=== PATIENT | female | born 1990 | race American Indian/Alaskan Native ===

== ENCOUNTER 2016-10-08 00:06 | Inpatient (IN) | payer OTHER ==
[2016-10-08] MEDS ORDERED: D5NS 0.2% 1,000 ML IV SCH (01:00)
[2016-10-08 01:25] LABS: Basophils % (Auto) 0.7 % (0.0-1.8); Eosinophils % (Auto) 2.2 % (0.0-4.3); Hematocrit 27.5 % (30.3-42.9); Hemoglobin 8.8 gm/dl (10.1-14.3); Mean Corpuscular HGB Conc 32 % (30-34); Mean Corpuscular Volume 70 fl (79-97); Platelet Count 366 K/mm3 (140-440); Red Blood Count 3.93 M/mm3 (3.65-5.03); Red Cell Distribution Width 18.5 % (13.2-15.2); Reticulocyte % 6.71 % (0.78-2.58); White Blood Count 15.6 K/mm3 (4.5-11.0)
[2016-10-08 01:28] LABS: Mean Corpuscular Hemoglobin 22 pg (28-32)
[2016-10-08] MEDS ORDERED: ZOFRAN IV ONE (02:38)
[2016-10-08] MEDS ORDERED: BENADRYL IV ONE (02:38)
[2016-10-08] MEDS ORDERED: TORADOL IV ONE (02:38)
[2016-10-08] MEDS ORDERED: DILAUDID IV ONE ×3 (02:38→05:04)
--- NOTE | 2016-10-08 04:02 | Emergency Department Report ---
ED General Adult HPI - General Chief complaint: Sickle Cell Crisis Stated complaint: CHEST PAIN, SHORTNESS OF BREATH Time Seen by Provider: 10/08/16 02:33 Source: patient Mode of arrival: Ambulatory Limitations: No Limitations - History of Present Illness Initial comments: 26-year-old female with a past medical history of sickle cell SS presents to the hospital complains of pain secondary to sickle cell crisis. Symptoms started this a.m. She denies of bilateral arm pain, upper back pain, and whole chest pain. Pain is constant, rated 8/10 intensity and not improved with her at home narcotic medication. She complains that pain in the middle for chest and worse with deep inspiration. Shortness of breath also reported due to pain. No reports of calf tenderness or edema. Last travel was to [place] in July. No history of DVT/PE, control pill use. Patient denies infectious symptoms including cough fever. 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 Severity scale (0 -10): 7 - Related Data Allergies Allergy/AdvReac Type Severity Reaction Status Date / Time No Known Allergies Allergy Verified 10/08/16 00:21 ED Review of Systems ROS: Stated complaint: CHEST PAIN, SHORTNESS OF BREATH Other details as noted in HPI Comment: All other systems reviewed and negative Other: Constitutional: No fevers chills Eyes: No eye pain visual changes ENT: No ear pain or throat pain Neck: Denies pain Respiratory: Denies cough wheezing Cardiovascular: as per hpi GI: Denies abdominal pain, nausea, vomiting, diarrhea : Denies dysuria Musculoskeletal: as per hpi Skin: Denies rash, lesions, erythema Neurologic: Denies headache, numbness, weakness Psychiatric: Denies suicidal ideation, hallucinations ED Past Medical Hx - Past Medical History Previous Medical History?: Yes Hx Sickle Cell Disease: Yes - Surgical History Past Surgical History?: No - Social History Smoking Status: Never Smoker Substance Use Type: None ED Physical Exam - General Limitations: No Limitations - Other Other exam information: General: No limitations, patient is alert in no acute distress Head exam: Atraumatic, normocephalic Eyes exam: Normal appearance ENT: Moist mucous membrane, normal oropharynx Neck exam: Normal inspection, full range of motion, no meningismus nontender Respiratory exam: Clear to auscultation bilateral, no wheezes, rales, crackles. Reproducible anterior chest wall tenderness along the sternum Cardiovascular: Normal rate and rhythm, normal heart sounds Abdomen: Soft, nondistended, and nontender, with normal bowel sounds, no rebound, or guarding Extremity: Full range of motion normal inspection no deformity, no calf tenderness or edema no signs of cellulitis Back: Normal Inspection, full range of motion, no tenderness Neurologic: Alert, oriented x3, cranial nerves intact, no motor or sensory deficit Psychiatric: normal affect, normal mood Skin: Warm, dry, intact ED Course Vital Signs 10/08/16 10/08/16 10/08/16 00:22 02:09 02:10 Temperature 98.4 F Pulse Rate 60 76 70 Respiratory 22 19 24 Rate Blood Pressure 111/71 O2 Sat by Pulse 99 Oximetry 10/08/16 10/08/16 10/08/16 02:15 02:20 02:21 Temperature Pulse Rate 57 L 55 L Respiratory 21 25 H 18 Rate Blood Pressure 99/72 99/72 O2 Sat by Pulse 98 99 100 Oximetry 10/08/16 10/08/16 10/08/16 02:26 02:30 02:36 Temperature Pulse Rate 54 L 49 L 53 L Respiratory 23 21 26 H Rate Blood Pressure 99/72 100/70 100/70 O2 Sat by Pulse 98 96 100 Oximetry 10/08/16 10/08/16 10/08/16 02:40 02:50 02:53 Temperature Pulse Rate 56 L Respiratory 18 18 Rate Blood Pressure 100/70 100/70 O2 Sat by Pulse 98 100 Oximetry 10/08/16 10/08/16 10/08/16 02:54 02:55 03:00 Temperature Pulse Rate 56 L 66 Respiratory 18 21 19 Rate Blood Pressure 100/70 100/70 O2 Sat by Pulse 97 96 Oximetry 10/08/16 10/08/16 10/08/16 03:05 03:10 03:16 Temperature Pulse Rate 63 59 L 55 L Respiratory 18 19 17 Rate Blood Pressure 111/61 O2 Sat by Pulse 97 97 97 Oximetry 10/08/16 10/08/16 10/08/16 03:20 03:26 03:30 Temperature Pulse Rate 63 56 L 55 L Respiratory 19 17 18 Rate Blood Pressure 111/61 111/61 110/65 O2 Sat by Pulse 95 98 95 Oximetry - Reevaluation(s) Reevaluation #1: 10/08/16 04:04 Patient medicated with Dilaudid, Toradol, Benadryl, and Zofran. IV fluids initiated Reevaluation #2: 10/08/16 04:54 I woke up patient from sleep to inquire about pain. Patient states she feels sleepy but continues to have pain but it is improved. Patient continues to have reproducible on the sternum. She states that shortness of breath has improved but still has pain with inspiration to the sternum area. 10/08/16 04:55 ED Medical Decision Making - Lab Data Result diagrams: 10/08/16 00:41 Lab Results 10/08/16 Range/Units 00:41 WBC 15.6 H (4.5-11.0) K/mm3 RBC 3.93 (3.65-5.03) M/mm3 Hgb 8.8 L (10.1-14.3) gm/dl Hct 27.5 L (30.3-42.9) % MCV 70 L (79-97) fl MCH 22 L (28-32) pg MCHC 32 (30-34) % RDW 18.5 H (13.2-15.2) % Plt Count 366 (140-440) K/mm3 Lymph % (Auto) 26.7 (13.4-35.0) % [place] % (Auto) 6.0 (0.0-7.3) % Eos % (Auto) 2.2 (0.0-4.3) % Baso % (Auto) 0.7 (0.0-1.8) % Lymph # 4.2 (1.2-5.4) K/mm3 [place] # 0.9 H (0.0-0.8) K/mm3 Eos # 0.3 (0.0-0.4) K/mm3 Baso # 0.1 (0.0-0.1) K/mm3 Seg Neutrophils % 64.4 (40.0-70.0) % Seg Neutrophils # 10.0 H (1.8-7.7) K/mm3 Percent Retic 6.71 H (0.78-2.58) % - EKG Data -: EKG Interpreted by Me (nsr rate 64, no stemi) - Radiology Data Radiology results: image reviewed (chest x-ray PA and lateral: No acute findings ) - Medical Decision Making Plan to admit pt to hospital for sickle cell crisis with chest pain. Patient is hesitant to stay stating she needs to go to work. She might sign out AGAINST MEDICAL ADVICE by 1 PM. I think it is important for patient to be monitored given her crisis with associated chest pain. Chest pain is reproducible at the sternum without any signs of hypoxia, fever, or infiltrate on chest x-ray. - Differential Diagnosis sickle cell crisis, acute chest, PE, pneumothorax, costochondritis, anemia Critical Care Time: No Critical care attestation.: If time is entered above; I have spent that time in minutes in the direct care of this critically ill patient, excluding procedure time. ED Disposition Clinical Impression: Sickle cell crisis, Chest pain Disposition: OP ADMITTED IP TO THIS HOSP Is pt being admited?: Yes Condition: Stable Time of Disposition: 05:36
[2016-10-08] MEDS ORDERED: DILAUDID IV PRN (06:23)
[2016-10-08] MEDS ORDERED: ZOFRAN IV PRN (06:25)
[2016-10-08] MEDS ORDERED: TYLENOL PO PRN (06:26)
[2016-10-08] MEDS ORDERED: NACL 0.9% 1000 ML 1,000 ML IV ONE (06:28)
[2016-10-08 07:20] LABS: Alanine Aminotransferase 8 units/L (7-56); Albumin 3.7 g/dL (3.9-5); Albumin/Globulin Ratio 1.6 %; Alkaline Phosphatase 57 units/L (35-129); Anion Gap 16 mmol/L; Bilirubin,Total 1.1 mg/dL (0.1-1.2); Blood Urea Nitrogen 12 mg/dL (7-17); Calcium 8.3 mg/dL (8.4-10.2); Carbon Dioxide 22 mmol/L (22-30); Glucose 92 mg/dL (65-100); Potassium 4.2 mmol/L (3.6-5.0); Sodium 139 mmol/L (137-145)
--- NOTE | 2016-10-08 07:34 | Admit Criteria Form ---
Admission Criteria Documentation: SICKLE CELL DISEASE Clinical Indications for Admission to Inpatient Care (Place 'X' for any and all applicable criteria): Admission is indicated for ANY ONE of the following(1)(2)(3)(4)(5): [X ]I. Inpatient admission required rather than observation care because of ANY ONE of the following: [ ]a) Altered mental status [ ]b) High fever or infection requiring inpatient admission as indicated by ANY ONE of the following: [ ]A. Appropriate outpatient observation care antimicrobial treatment unavailable, not effective, or not appropriate for infection [ ]B. Documented bacteremia [ ]C. Temp >104.9F (40.5C) (oral) [ ]D. Temp >103.1F (oral) or <96.8F(rectal) that does not respond to all emergency treatment measures [ ]c) Supplemental O2 or respiratory therapy for over 24 h that are performable only in acute inpatient setting [ X]d) Continuous parenteral narcotics other major pain intervention for >24 h performable only in acute inpatient setting. [ ]e) Exchange transfusion [X ]f) Other condition, treatment or monitoring requiring inpatient admission [ ]II. Acute chest syndrome indicated by ALL of the following (10): [ ]a) New alveolar infiltrate involving at least one lung segment [ ]b) Associated pulmonary symptoms or findings as indicated by ANY ONE of the following: [ ]i) Chest pain [ ]ii) Hypoxemia [ ]iii) Tachypnea/dyspnea [ ]iv) Wheezing [ ]v) Cough [ ]vi) Sputum production [ ]III. Significant hypoxemia or acidosis (more severe than baseline) [ ]IV. Emergent surgery needed (eg, acute cholecystitis) [ ]V. -related complication(11) [ ]. Splenic or hepatic sequestration(12) [ ]VII. Aplastic crisis [ ]VIII. Priapism or other vascular complication(13) [ ]IX. Traumatic hyphema [A](14) [ ]X. Underlying condition requiring hospitalization (eg, osteomyelitis) [ ]XI. Signs or symptoms of central nervous system injury indicated by ANY ONE of the following: [ ]a) Stroke(9) [ ]b) Seizure [ ]c) Other significant central nervous system symptom or event [ ]XII. Acute renal failure Extended stay beyond goal length of stay may be needed for: [ ]a) Inadequate pain control [ ]b) Acute chest syndrome [ ]c) Sequestration or aplastic crisis (12) [ ]d) Pneumonia and asthma exacerbation [ ]e) Neurologic or vascular complications (25) [ ]f) Infection (eg, osteomyelitis) that requires ongoing treatment) The original [facility] [email or web address] content created by [facility] has been revised. The portions of the content which have been revised are identified through the use of italic text or in bold, and [facility] has neither reviewed nor approved the modified material. All other unmodified content is copyright [facility]. Please see references footnoted in the original [facility] edition 2016 Admission Criteria Met: Yes
--- NOTE | 2016-10-08 07:36 | XRay Report ---
ROUTINE CHEST, TWO VIEWS: HISTORY: chest pain. The trachea, heart, mediastinal contour, lung germain and bony thorax are unremarkable. IMPRESSION: Unremarkable chest x-ray.
[2016-10-08 07:40] LABS: Creatine Kinase 100 units/L (30-135); Creatine Kinase MB < 1.0 ng/mL (0.0-4.0)
--- NOTE | 2016-10-08 09:56 | History and Physical Report ---
CHIEF COMPLAINT: Abdominal and chest pain. HISTORY OF PRESENT ILLNESS: The patient is a 26-year-old female with abdominal and chest pain going on since this morning. There is no pain in the arms and legs. The patient said that the pain did not get relieved with narcotics at home and pain in the chest is worse with breathing. There was also history of associated shortness of breath. There was no history of fever. No history of nausea or vomiting. No history of fever or chills and also there is no history of cough. The patient presented to the Emergency Room where she was evaluated and presented for admission for sickle cell pain crisis. PAST MEDICAL HISTORY: Pertinent for sickle cell disease. PAST SURGICAL HISTORY: Unremarkable. FAMILY HISTORY: Noncontributory. SOCIAL HISTORY: The patient does not smoke, does not drink alcohol and does not use illicit drugs. MEDICATIONS: The patient's home medications are not known. ALLERGIES: There are no known drug allergies. REVIEW OF SYSTEMS: CONSTITUTIONAL: There is no fever, no chills, no diaphoresis. HEENT: There is no headache or sore throat. CARDIOVASCULAR SYSTEM: There is pleuritic chest pain, no orthopnea. RESPIRATORY SYSTEM: Shortness of breath present. No cough. GASTROINTESTINAL SYSTEM: There is abdominal pain and there is no nausea or vomiting, no diarrhea or constipation. NEUROLOGICAL SYSTEM: There is no dizziness. No altered mental status. MUSCULOSKELETAL SYSTEM: There is no joint pain or swelling. DERMATOLOGICAL SYSTEM: There is no skin rash or itching. GENITOURINARY: There is no dysuria, hematuria or flank pain. Rest of system review is normal. PHYSICAL EXAMINATION: GENERAL: At the time of exam, the patient was found to be alert, oriented x 3 and not in acute distress. VITAL SIGNS: Shows normal temperature with pulse of 60, respirations 11, blood pressure 113/80, O2 sat of 94% on room air. HEENT: Showed pupils to be equal, round, reactive to light and accommodation. Extraocular muscles are intact. NECK: Supple with no JVD or carotid bruit. CARDIOVASCULAR SYSTEM: Show first and second heart sounds with no gallops or murmur. RESPIRATORY: Showed good air entry on both sides of the lung with no abnormal breath sounds. GASTROINTESTINAL SYSTEM: Show abdomen to be full, soft, nontender with no organomegaly or rigidity. NEUROLOGICAL: Showed no focal deficits. MUSCULOSKELETAL SYSTEM: Showed no joint swelling or tenderness. DERMATOLOGICAL SYSTEM: Show no skin rash. GENITOURINARY: Showing no costovertebral angle tenderness. PERTINENT LABORATORY DATA AND IMAGING STUDIES: The patient had chest x-ray done that shows no acute cardiopulmonary lesion. CBC shows elevated white count of 15,600 with a low hemoglobin of 8.8 and low hematocrit of 27.7 with low MCV of 70. CBC differential was unremarkable. Chemistry came back unremarkable. DIAGNOSIS: Sickle cell pain crisis. PLAN: The patient will be admitted to medical floor and will be on IV Dilaudid 1 mg q. 4 hours as needed for pain. The patient will also be on IV Zofran 4 mg q. 6 hours IV for nausea and vomiting and will be on Tylenol 650 mg by mouth every 4 hours as needed for fever, headache. The patient will be on IV normal saline at 125 mL an hour and will have cardiac enzymes, troponin, total CK and CK-MB checked for the first level. The patient's home medications will be reconciled and applied accordingly. JOB# [id number] OCN/AP JENKINS
[2016-10-08] MEDS ORDERED: HEPARIN SUB-Q SCH (10:00)
--- NOTE | 2016-10-08 11:17 | Discharge Summary ---
Providers - Providers Date of Admission: 10/08/16 06:22 Date of discharge: 10/08/16 Attending physician: ELENA DODSON Primary care physician: EGG CASER Hospitalization Condition: Good Disposition: DISCHARGED TO HOME OR SELFCARE - Discharge Diagnoses (1) Vasoocclusive sickle cell crisis Status: Acute Exam - Constitutional Vitals: Temp Pulse Resp BP Pulse Ox 98.4 F 80 24 136/61 95 10/08/16 00:22 10/08/16 08:56 10/08/16 08:56 10/08/16 08:56 10/08/16 08:56 Plan Activity: no restrictions Diet: low fat, low cholesterol Additional Instructions: 1.Follow up with PCP in 1 week Follow up with: PRIMARY CARE, [Primary Care Provider] - 7 Days Prescriptions: HYDROcodone/APAP 5-325 [[place] 5/325] 1 each PO Q6HR PRN #20 tablet PRN Reason: Pain
[2016-10-08 11:59] VITALS: BP 98/59
== END 2016-10-08 15:10 | disposition home or self-care (01) | DRG 812 ==
LOC: ED 00:06 → 3A 06:22
PROVIDERS: ADMIT Internal Medicine; ATTEND Internal Medicine
DX: D57.00 Hb-SS disease with crisis, unspecified (principal); R07.9 Chest pain, unspecified
CPT/HCPCS: 36415; 71020; 80053; 82550; 82553; 84484; 85025; 85045; 93005; 93010; 96361; 96375; 96376; J1170; J1200; J1885; J2405; J7030

== ENCOUNTER 2017-08-08 00:20 | Emergency (ER) | payer SELFPAY ==
[2017-08-08 00:45] VITALS: BP 136/85
[2017-08-08] MEDS ORDERED: D5NS 0.2% 1,000 ML IV SCH (01:00)
[2017-08-08 01:05] LABS: Hematocrit 30.1 % (30.3-42.9); Hemoglobin 9.8 gm/dl (10.1-14.3); Mean Corpuscular HGB Conc 33 % (30-34); Platelet Count 368 K/mm3 (140-440); Red Blood Count 4.31 M/mm3 (3.65-5.03); Red Cell Distribution Width 17.5 % (13.2-15.2)
[2017-08-08 01:07] LABS: Mean Corpuscular Hemoglobin 23 pg (28-32); Mean Corpuscular Volume 70 fl (79-97)
[2017-08-08 02:30] LABS: Basophils % (Manual) 0 % (0.0-1.8); Total Cells Counted 100
[2017-08-08 02:31] LABS: Hypochromasia 1+; Platelet Estimate Consistent w Auto; Sickle Cells 1+; Tear Drop Cells Few
== END 2017-08-08 01:00 | disposition left against medical advice (07) ==
LOC: ED 00:20
DX: D57.00 Hb-SS disease with crisis, unspecified (principal); Z53.21 Procedure and treatment not carried out due to patient leaving prior to being seen by health care provider
CPT/HCPCS: 36415; 85007; 85025; 85045

== ENCOUNTER 2017-08-23 03:11 | Emergency (ER) | payer OTHER ==
[2017-08-23 03:52] VITALS: BP 116/72
[2017-08-23] MEDS ORDERED: ASPIRIN ONE (03:53)
[2017-08-23] MEDS ORDERED: ASPIRIN PO ONE (03:58)
[2017-08-23] MEDS ORDERED: D5NS 0.2% 1,000 ML IV SCH (04:00)
[2017-08-23 08:36] LABS: Basophils # (Auto) 0.1 K/mm3 (0.0-0.1); Basophils % (Auto) 0.5 % (0.0-1.8); Eosinophils # (Auto) 0.3 K/mm3 (0.0-0.4); Eosinophils % (Auto) 2.3 % (0.0-4.3); Hematocrit 26.5 % (30.3-42.9); Hemoglobin 8.7 gm/dl (10.1-14.3); Lymphocytes # (Auto) 3.7 K/mm3 (1.2-5.4); Lymphocytes % (Auto) 28.1 % (13.4-35.0); Mean Corpuscular HGB Conc 33 % (30-34); Mean Corpuscular Volume 71 fl (79-97); Monocytes # (Auto) 0.9 K/mm3 (0.0-0.8); Monocytes % (Auto) 6.5 % (0.0-7.3); Platelet Count 291 K/mm3 (140-440); Red Blood Count 3.75 M/mm3 (3.65-5.03); Red Cell Distribution Width 18.6 % (13.2-15.2)
[2017-08-23 08:39] LABS: Mean Corpuscular Hemoglobin 23 pg (28-32)
[2017-08-23 10:05] LABS: BUN/Creatinine Ratio 15; Blood Urea Nitrogen 9 mg/dL (7-17); Calcium 8.9 mg/dL (8.4-10.2)
[2017-08-23 10:17] LABS: Hemolysis Index 8
== END 2017-08-23 09:10 | disposition left against medical advice (07) ==
LOC: ED 03:11
DX: R07.9 Chest pain, unspecified (principal); Z53.21 Procedure and treatment not carried out due to patient leaving prior to being seen by health care provider
CPT/HCPCS: 36415; 80048; 84484; 84703; 85025; 85045; 93005; 93010

== ENCOUNTER 2020-11-25 20:17 | Emergency (ER) | payer BC, OTHER ==
--- NOTE | 2020-11-26 00:04 | Cat Scan Report ---
NONENHANCED CT SCAN OF THE HEAD: INDICATION / CLINICAL INFORMATION: 30 years Female; Post-Fall with injury, now with head pain.. TECHNIQUE: Routine CT head without contrast. All CT scans at this location are performed using CT dos e reduction for ALARA by means of automated exposure control. COMPARISON: None. FINDINGS: BRAIN / INTRACRANIAL CONTENTS: No intracranial sequela from the trauma; no scalp hematoma; no air-flu id level in the visualized portions of the paranasal sinuses No acute hemorrhage, mass effect, midline shift, hydrocephalus, or acute, large territorial infarct. No chronic infarct or focal atrophy. Normal brain volume and ventricular/sulcal size for age. No sig nificant white matter abnormality. CRANIOCERVICAL JUNCTION: No significant abnormality. ORBITS: No significant abnormality of visualized orbits. SINUSES / MASTOIDS: No significant abnormality of the visualized paranasal sinuses or mastoid air michael ls. ADDITIONAL FINDINGS: None. IMPRESSION: No intracranial sequela from the trauma; no acute focal parenchymal lesion in the brain Signer Name: Nicolas Ross MD Signed: 11/25/2020 11:59 PM Workstation Name: [id number]
--- NOTE | 2020-11-26 00:05 | Cat Scan Report ---
Exam: CT cervical spine History: Post-Fall with injury, now with neck pain.; Technique: Contiguous thin cut axial images obtained through the cervical spine. Sagittal and glass l reconstructions performed by the technologist. All CT scans at this location are performed using CT dose reduction for ALARA by means of automated exposure control. Findings: No priors. There is no evidence of fracture or traumatic subluxation. Vertebral bodies are normal in height and alignment. Intervertebral disc spaces are well-maintained. No significant degenerative change seen in the uncinate or facet joints. No significant canal stenosi s or osseous foraminal narrowing. Surrounding soft tissues are grossly normal. Impression: No signs of acute bony trauma to the cervical spine. Signer Name: Nicolas Ross MD Signed: 11/26/2020 12:01 AM Workstation Name: [id number]
--- NOTE | 2020-11-26 02:51 | Emergency Department Report ---
ED Fall HPI - General Chief Complaint: Headache Stated Complaint: FELL HIT HEAD/PAIN Time Seen by Provider: 11/26/20 02:42 Source: patient Mode of arrival: Ambulatory - History of Present Illness Initial Comments: Patient is 30 years old female with no significant past medical history except for sickle cell disease. Patient presented to the ER complaining of headache after a fall last night. Patient stated that she went hiking and slipped and fell backwards and hit her head. Patient denies any loss of consciousness. She denied any focal weakness numbness or tingling sensation. No bowel or bladder incontinence. Patient denied any fever or chills. No neck stiffness. MD Complaint: fall -: Last night Fall From: standing Fall Witnessed: yes, by family Place Fall Occurred: street Loss of Consciousness: none Prolonged Down Time?: no Symptoms Prior to Fall: none Location: head, neck Context: tripped/slipped Associated Symptoms: headache - Related Data Home Medications Medication Instructions Recorded Confirmed Last Taken Ferrous Sulfate [Feosol 325 MG tab] 325 mg PO DAILY 10/08/16 10/08/16 1 Day Ago ~10/07/16 Folic Acid [Folvite] 1 mg PO DAILY 10/08/16 10/08/16 10/07/16 Previous Rx's Medication Instructions Recorded Last Taken Type HYDROcodone/APAP 5-325 [[place] 1 each PO Q6HR PRN #20 tablet 10/08/16 Unknown Rx 5/325] Allergies Allergy/AdvReac Type Severity Reaction Status Date / Time No Known Allergies Allergy Verified 10/08/16 00:21 ED Review of Systems ROS: Stated complaint: FELL HIT HEAD/PAIN Other details as noted in HPI Comment: All other systems reviewed and negative Constitutional: denies: chills, fever Respiratory: denies: cough, shortness of breath, SOB with exertion Cardiovascular: denies: chest pain, palpitations Gastrointestinal: denies: abdominal pain, nausea, vomiting Musculoskeletal: denies: back pain Neurological: headache. denies: weakness, numbness, paresthesias, confusion, abnormal gait ED Past Medical Hx - Past Medical History Previous Medical History?: Yes Hx Congestive Heart Failure: No Hx Diabetes: No Hx Sickle Cell Disease: Yes Hx Asthma: No Hx COPD: No Hx HIV: No - Surgical History Past Surgical History?: No - Social History Smoking Status: Never Smoker Substance Use Type: Alcohol - Medications Home Medications: Home Medications Medication Instructions Recorded Confirmed Last Taken Type Ferrous Sulfate [Feosol 325 MG tab] 325 mg PO DAILY 10/08/16 10/08/16 1 Day Ago History ~10/07/16 Folic Acid [Folvite] 1 mg PO DAILY 10/08/16 10/08/16 10/07/16 History HYDROcodone/APAP 5-325 [[place] 1 each PO Q6HR PRN #20 tablet 10/08/16 Unknown Rx 5/325] ED Physical Exam - General Limitations: No Limitations General appearance: alert, in no apparent distress - Head Head exam: Present: atraumatic, normocephalic, normal inspection - Eye Eye exam: Present: normal appearance, PERRL - ENT ENT exam: Present: normal exam, normal orophraynx, mucous membranes moist - Neck Neck exam: Present: normal inspection, full ROM. Absent: tenderness, meningismus - Respiratory Respiratory exam: Present: normal lung sounds bilaterally - Cardiovascular Cardiovascular Exam: Present: regular rate, normal rhythm, normal heart sounds - GI/Abdominal GI/Abdominal exam: Present: soft, normal bowel sounds. Absent: distended, tenderness, guarding, rebound, rigid, organomegaly, mass, bruit, pulsatile mass, hernia - Extremities Exam Extremities exam: Present: normal inspection, full ROM, normal capillary refill. Absent: tenderness, pedal edema, joint swelling, calf tenderness - Back Exam Back exam: Present: normal inspection, full ROM. Absent: CVA tenderness (R), CVA tenderness (L) - Neurological Exam Neurological exam: Present: alert, oriented X3, CN II-XII intact, normal gait, reflexes normal. Absent: abnormal gait, motor sensory deficit - Psychiatric Psychiatric exam: Present: normal mood - Skin Skin exam: Present: warm, intact, normal color ED Course Vital Signs 11/25/20 22:11 Temperature 98.6 F Pulse Rate 55 L Respiratory 18 Rate Blood Pressure 114/60 O2 Sat by Pulse 100 Oximetry ED Medical Decision Making - Radiology Data Radiology results: report reviewed - Medical Decision Making Patient is 30 years old female with no significant past medical history. Patient presented to the ER complaining of headache after a fall last night. Patient stated that she went hiking and slipped and fell backwards and hit her head. Patient denies any loss of consciousness. She denied any focal weakness numbness or tingling sensation. No bowel or bladder incontinence. Patient denied any fever or chills. No neck stiffness. Patient remained stable in the ER with a stable vital sign. CT brain and CT cervical spine is unremarkable. Patient given Toradol 60 IM for headache. Patient advised to follow-up with her primary doctor in the next 2 to 3 days and to return to the ER if she develop any new symptoms. Critical care attestation.: If time is entered above; I have spent that time in minutes in the direct care of this critically ill patient, excluding procedure time. ED Disposition Clinical Impression: Head injury, Headache Disposition: DC-01 TO HOME OR SELFCARE Is pt being admited?: No Condition: Stable Instructions: Head Injury, Adult Referrals: PRIMARY CARE, [Primary Care Provider] - 3-5 Days
[2020-11-26] MEDS ORDERED: KETOROLAC 60 MG/2 ML INJ IM ONE (02:52)
[2020-11-26 03:15] VITALS: BP 110/60
== END 2020-11-26 03:17 | disposition home or self-care (01) ==
LOC: ED 20:17
DX: S09.90XA Unspecified injury of head, initial encounter (principal); Z79.899 Other long term (current) drug therapy; W01.0XXA Fall on same level from slipping, tripping and stumbling without subsequent striking against object, initial encounter; Y93.89 Activity, other specified; Y92.89 Other specified places as the place of occurrence of the external cause; Y99.8 Other external cause status
CPT/HCPCS: 70450; 72125; 96372; 99283; J1885